=== PATIENT | male | born 1950 | race Caucasian/White ===

== ENCOUNTER → 2018-04-28 | Outpatient (CLI) | payer OTHER | LOC: BHFA 13:30 | PROVIDERS: ATTEND Internal Medicine Interventional Cardiology | DX: I48.91 Unspecified atrial fibrillation (principal) ==

== ENCOUNTER → 2018-08-11 | Outpatient (CLI) | payer OTHER | LOC: FCPNEURO 21:30 ==

== ENCOUNTER → 2018-12-09 | Outpatient (CLI) | payer OTHER | LOC: FCPNEURO 22:48 ==